=== PATIENT | male | born 1945 | race Caucasian/White ===

== ENCOUNTER → 2017-02-15 | Day surgery (SDC) | payer BC ==
[2017-02-05 14:40] VITALS: Ht 180.3 cm; Wt 108.2 kg
[~2017-02-15] VITALS: Ht 180.3 cm; Wt 108.2 kg
[~2017-02-15] MED LIST: ASPCH81X PO; ATOR-26 PO; CANA1TAB3 PO; CZR25 PO; GLC500 PO; GLCSR5 PO; INSDGIPEN SC; JNV100 PO; LIDOCAINE HCL 2% 2 ML VIAL (20MG/ML) ONE; METO50TA16 PO; MULT-506 PO; NTRGSL/4 UT; PROPOFOL IV EMULSION 10 MG/ML 20 ML VIAL IV ONE; PRT/20 PO; REPA1TAB10 PO; RIVA1TAB4 PO; SODIUM CHLORIDE 0.9% 500ML 500 ML IV ONE
--- NOTE | 2017-02-15 09:37 | Endo History and Physical ---
History & Physical Date of Service: Feb 15, 2017. Chief Complaint: history of polyps Referring Physician: Dr. Primitivo Torres History of Present Illness H/o polyps Past Medical History Atrial Fibrillation, Diabetes, Angioplasty/Stent, Reflux, Cancer, High Cholesterol, [place] Past Surgical History Hx Cardiac Surgery: Yes (CARDIAC ABLATION; CARDIAC CATH, STENT X1) Hx Internal Defibrillator: No Hx Pacemaker: No Hx Abdominal Surgery: Yes (HERNIA REPAIR) Hx of Implantable Prosthesis: No Hx Post-Op Nausea and Vomiting: No Hx Cancer Surgery: Yes (BCC REMOVAL FROM BACK) Hx Thoracic Surgery: No Hx Orthopedic: Yes (LT/RT SHOULDER) Hx Urinary Tract Surgery: No Family History None Social History Smoking Status: Former Smoker Hx Substance Use: No Hx Alcohol Use: Yes (RARELY) Allergies Coded Allergies: No Known Allergies (Verified , 02/05/17) Current Medications Reported Home Medications Medications Dose Route/Sig Max Daily Dose Days Date Category Lopressor (Metoprolol Tartrate) 50 Mg Tab 50 Mg PO QPM 02/05/17 Reported Invokana (Canagliflozin) 300 Mg Tab 1 Tab PO QAM 02/05/17 Reported Protonix (Pantoprazole Sodium) 20 Mg Tab 2 Tab PO QAM 02/05/17 Reported Xarelto (Rivaroxaban) 20 Mg Tab 20 Mg PO QPM 07/13/14 Reported Lipitor (Atorvastatin Calcium) 80 Mg Tab 80 Mg PO HS 07/13/14 Reported Lantus Solostar (Insulin Glargine) 100 Unit/Ml Inj 46 Units SC HS 07/13/14 Reported Aspirin Chewable (Aspirin) 81 Mg Chew 81 Mg PO QPM 07/13/14 Reported Losartan Potassium 25 Mg Tab 25 Mg PO QAM 07/13/14 Reported Januvia (Sitagliptin) 100 Mg Tab 100 Mg PO QAM 07/13/14 Reported Repaglinide 2 Mg Tab 2 Tabs PO LUNCH 07/13/14 Reported Repaglinide 2 Mg Tab 2 Mg PO QAM 07/13/14 Reported Lopressor (Metoprolol Tartrate) 50 Mg Tab 1.5 Tabs PO QAM 05/09/11 Reported Nitrostat (Nitroglycerin) 0.4 Mg Tab 0.4 Mg UT UD PRN 09/21/10 Reported Glucophage * (Metformin HCl) 1,000 Mg Tab 1,000 Mg PO BID 09/10/10 Reported Multivitamin (Multivitamins) Tab 1 Tab PO QAM 08/24/06 Reported Glucotrol Ext Rel * (Glipizide) 10 Mg Ertab 10 Mg PO BID 08/24/06 Reported Vital Signs Weight (Kilograms): 108.18 Height (Feet): 5 Height (Inches): 11 Date Time Temp Pulse Resp B/P (MAP) Pulse Ox O2 Delivery O2 Flow Rate FiO2 02/15/17 08:54 36.4 84 20 140/64 (89) 97 Room Air Physical Exam General Appearance: no apparent distress Respiratory/Chest: Auscultation: breath sounds normal Cardiovascular: Heart Auscultation: RRR Abdomen: Inspection & Palpation: soft Assessment and Plan H/o polyps - Cscopy
--- NOTE | 2017-02-15 10:14 | GI REPORT ---
Procedure Date: 02/15/2017 9:34 AM Procedure: Colonoscopy Indications: High risk colon cancer surveillance: Personal history of colonic polyps - cscopy in 2009 with mult small polyps; cscopy in 2013 WNL Medicines: See the Anesthesia note for documentation of the administered medications Complications: No immediate complications. Estimated Blood Loss: Estimated blood loss: none. Procedure: Pre-Anesthesia Assessment: - ASA Grade Assessment: III - A patient with severe systemic disease. After I obtained informed consent, the scope was passed under direct vision. Throughout the procedure, the patient's blood pressure, pulse, and oxygen saturations were monitored continuously. The scope was introduced through the anus and advanced to the terminal ileum. The colonoscopy was performed without difficulty. The patient tolerated the procedure well. The quality of the bowel preparation was good. Findings: The perianal exam findings include non-thrombosed external hemorrhoids. Multiple small and large-mouthed diverticula were found in the sigmoid colon. Five sessile polyps were found in the sigmoid colon, in the transverse colon and in the ascending colon. The polyps were 1 to 3 mm in size. These polyps were removed with a cold biopsy forceps. Resection and retrieval were complete. Hemorrhoids were found during retroflexion. Impression: - Non-thrombosed external hemorrhoids found on perianal exam. - Diverticulosis in the sigmoid colon. - Five 1 to 3 mm polyps in the sigmoid colon, in the transverse colon and in the ascending colon, removed with a cold biopsy forceps. Resected and retrieved. - Hemorrhoids. Recommendation: Repeat exam in 3 years, pending pathology review. Resume xarelto tomorrow. - Discharge patient to home. Azul Piña M.D. Azul Piña MD 02/15/2017 10:13:47 AM This report has been signed electronically. Note Initiated On: 02/15/2017 9:34 AM I attest to the content of the Intraoperative Record and orders documented therein, exceptions below
--- NOTE | 2017-02-15 10:20 | Discharge Instructions ---
Endoscopy Patient Instructions Date / Procedure(s) Performed Feb 15, 2017. Colonoscopy Allergy Information Coded Allergies: No Known Allergies (Verified , 02/05/17) Discharge Date / Findings Feb 15, 2017. Multiple diminutive polyps, diverticulosis, hemorrhoids. Medication Instructions Stopped Medication(s): last dose ASA,Metformin,MVI and Xarelto on Saturday Resume aspirin and Xarelto tomorrow Provider Instructions Activity Restrictions - No exercising or heavy lifting for 24 hours. - Do not drink alcohol the day of the procedure. - Do not drive a car or operate machinery until the day after the procedure. - Do not make any important decisions or sign important papers in 24 hours after the procedure. Following Day: - Return to full activity which may include returning to work/school. Diet Start your diet with liquids and light foods (jello, soup, juice, toast). Then eat your usual diet if not nauseated. Treatment For Common After Affects For mild abdominal pain, bloating, or excessive gas: - Rest - Eat lightly - Lie on right side Follow-Up Information Follow-up with Dr. Primitivo Torres as scheduled Anesthesia Information What You Should Know You have had a procedure that required some medicine to reduce anxiety and discomfort. This treatment is called moderate sedation. After receiving the treatment, you may be sleepy, but you will be able to breathe on your own. The effects of the treatment may last for several hours. Follow these instructions along with Activity/Diet recommendations noted above: * Do NOT do anything where dizziness or clumsiness would be dangerous. * Rest quietly at home today, then you can be up and about tomorrow. * Have a responsible person stay with you the rest of today. * You may have had an I.V. today. If so, you may take the dressing off later today. Recommendations Call your doctor if: * Trouble breathing * Continuous vomiting for more than 24 hours * Temperature above 101 degrees * Severe abdominal pain or bloating * Pain not relieved by pain medicine ordered * There is increased drainage or redness from any incision * A large amount of rectal bleeding greater than 2-3 tablespoons. (If you had a polyp/s removed or have hemorrhoids, a small amount of blood - from the rectum is to be expected.) * You have any unanswered questions or concerns. IN THE EVENT OF A SERIOUS EMERGENCY, GO TO THE NEAREST EMERGENCY ROOM Your discharge instructions were prepared by provider Azul Bojorquez. Patient Instructions Signature Page Jose Rivera Patient (or Guardian) Signature/Date: I have read and understand the instructions given to me by my caregivers. Caregiver/RN/Doctor Signature/Date: The above-named patient and/or guardian has received patient instructions on this date. + Original Patient Signature Page (only) stays with chart. Please make copy for patient.
--- NOTE | 2017-02-15 10:38 | Anesthesiology Progress Note ---
Anesthesia Post Op Note Date & Time Feb 15, 2017 at 10:37 Vital Signs Pain Intensity: 0 Vital Signs Past 12 Hours Date Time Temp Pulse Resp B/P (MAP) Pulse Ox O2 Delivery O2 Flow Rate FiO2 02/15/17 10:15 84 18 121/65 (83) 97 Room Air 02/15/17 10:00 81 16 117/61 (79) 94 Room Air 02/15/17 08:54 36.4 84 20 140/64 (89) 97 Room Air Notes Mental Status: alert / awake / arousable, participated in evaluation Pt Amnestic to Procedure: Yes Nausea / Vomiting: adequately controlled Pain: adequately controlled Airway Patency, RR, SpO2: stable & adequate BP & HR: stable & adequate Hydration State: stable & adequate Anesthetic Complications: no major complications apparent
[2017-02-15 10:42] VITALS: BP 126/65; PULSE 88; O2SAT 97
== END | disposition home or self-care (01) ==
LOC: C.GI 08:24
PROVIDERS: ATTEND Internal Medicine Gastroenterology
DX: Z12.11 Encounter for screening for malignant neoplasm of colon (principal); K57.30 Diverticulosis of large intestine without perforation or abscess without bleeding; D12.5 Benign neoplasm of sigmoid colon; D12.3 Benign neoplasm of transverse colon; D12.2 Benign neoplasm of ascending colon; Z86.010 Personal history of colon polyps; I25.2 Old myocardial infarction; I25.10 Atherosclerotic heart disease of native coronary artery without angina pectoris; I10 Essential (primary) hypertension; E78.00 Pure hypercholesterolemia, unspecified; E11.9 Type 2 diabetes mellitus without complications; Z79.899 Other long term (current) drug therapy; Z79.4 Long term (current) use of insulin; K64.4 Residual hemorrhoidal skin tags; Z68.33 Body mass index [BMI] 33.0-33.9, adult

== ENCOUNTER → 2017-08-13 | Outpatient (CLI) | payer BC ==
[~2017-08-13] MED LIST changes: -LIDOCAINE HCL 2% 2 ML VIAL (20MG/ML) ONE; -PROPOFOL IV EMULSION 10 MG/ML 20 ML VIAL IV ONE; -SODIUM CHLORIDE 0.9% 500ML 500 ML IV ONE
== END | disposition home or self-care (01) ==
LOC: C.LABSPEC 16:33
PROVIDERS: ATTEND Physician Assistant
DX: R21 Rash and other nonspecific skin eruption (principal)